=== PATIENT | male | born 1990 | race Caucasian/White ===

== ENCOUNTER 2017-11-16 01:24 | Emergency (ER) | payer OTHER ==
[2017-11-16] MEDS ORDERED: Iopamidol 755 Mg/ML 100 ML Bottle IVPUSH ONE (02:03)
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
[2017-11-16] MEDS ORDERED: Lidocaine 1% 20 ML MDV INJECT ONE (03:54)
[2017-11-16] MEDS ORDERED: Lidocaine 1% 30 ML SDV ONE (04:01)
--- NOTE | 2017-11-16 15:41 | CT ---
CT abdomen and pelvis Technique: Multiple axial sections were obtained from above the dome of the diaphragm inferiorly through the pubic symphysis. Intravenous contrast was utilized. No oral contrast has been given. Comparison: No prior abdominal imaging. Findings: Visualized lung bases are clear. Low-density is noted within the spleen compatible with splenic hematoma and small laceration. No definite perisplenic fluid collections are seen. Minimal low density area is seen next to the gallbladder possibly due to small hepatic hematoma. Minimal pericholecystic fluid is seen in this area presumably due to blood. Adrenal glands show no nodule. No calcified gallstones are seen within the gallbladder. Kidneys show symmetric contrast enhancement without hydronephrosis or mass. Pancreas is within normal limits. Aorta shows no aneurysmal dilatation. No retroperitoneal adenopathy or mesenteric abnormalities are seen. No pelvic mass or adenopathy is seen. Delayed images show contrast within the distal ureters and within the bladder. Increased soft tissue density seen within the lateral right pelvis hip area within the subcutaneous fat compatible with subcutaneous hematoma. No acute bony abnormality seen on bone window settings. Impression: 1. Minimal liver finding most likely representing grade 1 hepatic injury. This occurs near the gallbladder. 2. Splenic hematoma and possible laceration compatible with grade 2 injury. 3. Other findings felt to be incidental. Diagnostic code #3 Agree with preliminary report issued by [email or web address] ([facility] preliminary report dictated on 11/16/17, 4:00 AM Central Time)
--- NOTE | 2017-11-16 15:41 | CR ---
Right wrist: Four views of the right wrist were obtained. Comparison: No previous wrist exam. Lucent line is identified at the base of the ulnar styloid process possibly due to nondisplaced fracture. Other bony structures appear intact without additional fracture or other abnormality being seen. Impression: 1. Possible nondisplaced fracture at the base of the ulnar styloid process. 2. Right wrist exam is otherwise unremarkable. Diagnostic code #3
--- NOTE | 2017-11-16 15:41 | CR ---
Right femur: AP and lateral views of the right femur were obtained. Comparison: No previous study. No fracture or other abnormality is identified. Subcutaneous soft tissue tissue density is seen overlying the right hip compatible with subcutaneous contusion. Impression: 1. No bony abnormality is seen on two-view right femur study. 2. Subcutaneous soft tissue density as noted above. Diagnostic code #3
--- NOTE | 2017-11-16 15:41 | CR ---
Pelvis and right hip: AP view of the pelvis was obtained as well as AP and frog-leg lateral views of the right hip. Comparison: No prior study. Joint spaces within both hips are maintained. Sacroiliac joints are within normal limits. No fracture or other bony abnormality is seen. Impression: 1. No abnormality is seen on AP pelvis or on two-view right hip exam. Diagnostic code #1
--- NOTE | 2017-11-16 15:41 | CT ---
Head CT Technique: Multiple axial sections through the brain were obtained. Intravenous contrast was not utilized. Comparison: No previous intracranial imaging. Findings: Ventricles along with basal cisterns and sulci over the convexities are within normal limits for the patient's age. No abnormal parenchymal densities are seen. No evidence of intracranial hemorrhage. No midline shift or mass effect is seen. Bone window settings were reviewed which show no acute calvarial abnormality. Visualized sinuses are clear. Impression: 1. No acute intracranial abnormality is identified. Diagnostic code #1 Agree with preliminary report issued by [facility] ([facility] preliminary report dictated on 11/16/17, 3:25 AM Central Time)
== END 2017-11-16 06:49 ==
LOC: JD.ED 01:24
DX: S36.113A Laceration of liver, unspecified degree, initial encounter (principal); S36.00XA Unspecified injury of spleen, initial encounter; S52.614A Nondisplaced fracture of right ulna styloid process, initial encounter for closed fracture; S01.81XA Laceration without foreign body of other part of head, initial encounter; S20.219A Contusion of unspecified front wall of thorax, initial encounter; S30.1XXA Contusion of abdominal wall, initial encounter; S70.01XA Contusion of right hip, initial encounter; S70.11XA Contusion of right thigh, initial encounter; S60.511A Abrasion of right hand, initial encounter; F17.210 Nicotine dependence, cigarettes, uncomplicated; Z88.0 Allergy status to penicillin; V49.9XXA Car occupant (driver) (passenger) injured in unspecified traffic accident, initial encounter
CPT/HCPCS: 12014; 36415; 70450; 73110; 73502; 73552; 74177; 80053; 85025; 99285; G0480